=== PATIENT | female | born 1990 | race Two or more races ===

== ENCOUNTER 2019-07-04 00:02 | Emergency (ER) | payer MEDICAID ==
[~2019-07-04] VITALS: Ht 170.2 cm; Wt 86.6 kg
[2019-07-04 00:16] VITALS: Ht 170.2 cm; Wt 86.6 kg
[2019-07-04 02:01] VITALS: BP 134/97
== END 2019-07-04 02:01 | disposition home or self-care (01) ==
LOC: ED 00:02
DX: N76.4 Abscess of vulva (principal)
CPT/HCPCS: J2001; J2270; Q0162